=== PATIENT | female | born 1965 | race Hispanic/Latino ===

== ENCOUNTER 2022-03-03 15:47 | Emergency (ER) | payer OTHER ==
[~2022-03-03] VITALS: Ht 152.4 cm; Wt 65.8 kg
[2022-03-03 15:49] VITALS: BP 155/71
[2022-03-03] MEDS ORDERED: IBUPROFEN 600 MG TABLET PO ONE (18:00)
[2022-03-03] MEDS ORDERED: TETANUS/DIPHTHERIA TOXOID [ADULT] 0.5 ML VIAL IM ONE (18:00)
[2022-03-03] MEDS ORDERED: AMOX/CLAV 875/125MG TAB PO ONE (18:00)
[2022-03-03] MEDS ORDERED: AMOX1TAB16 PO (18:45)
[2022-03-03] MEDS ORDERED: BACI30OI6 TP (18:45)
== END 2022-03-03 18:56 | disposition home or self-care (01) ==
LOC: EDH 15:47
DX: S61.432A Puncture wound without foreign body of left hand, initial encounter (principal); S61.452A Open bite of left hand, initial encounter; Z90.49 Acquired absence of other specified parts of digestive tract; W54.0XXA Bitten by dog, initial encounter; Y93.89 Activity, other specified; Y92.89 Other specified places as the place of occurrence of the external cause; Y99.8 Other external cause status
CPT/HCPCS: 73120; 90471; 90714